=== PATIENT | male | born 1945 | race Caucasian/White ===

== ENCOUNTER 2017-05-25 04:00 | Emergency (ER) | payer OTHER ==
[~2017-05-25] VITALS: Ht 177.8 cm; Wt 100.0 kg
[2017-05-25 05:49] LABS: HEMATOCRIT 37.2 % (39.2-51.8); HEMOGLOBIN 12.4 g/dL (13.7-18.0); WHITE BLOOD COUNT 7.2 x10^3/uL (3.4-10)
[2017-05-25 06:01] LABS: BLOOD UREA NITROGEN 17 mg/dL (7-18)
[2017-05-25 06:58] VITALS: BP 132/71
== END 2017-05-25 07:17 | disposition home or self-care (01) ==
LOC: ED 04:52
DX: M71.21 Synovial cyst of popliteal space [Baker], right knee (principal); Z59.0 Homelessness
CPT/HCPCS: 36415; 71010; 80048; 82040; 83880; 85025; 93970; 99285

== ENCOUNTER 2017-09-28 15:04 | Emergency (ER) | payer OTHER ==
[~2017-09-28] VITALS: Ht 177.8 cm; Wt 86.4 kg
[2017-09-28 16:56] LABS: ALBUMIN 3.9 g/dL (3.4-5.0); ANION GAP 7 mmol/L (5-15); CALCIUM 9.1 mg/dL (8.5-10.1); CHLORIDE 108 mmol/L (98-107)
[2017-09-28 16:59] LABS: SALICYLATE LEVEL < 1.7 mg/dL (2.8-20.0)
[2017-09-28 17:00] LABS: CREATININE 1.32 mg/dL (0.7-1.3)
[2017-09-28 17:03] LABS: ACETAMINOPHEN < 2 mcg/mL (10-30)
[2017-09-28 17:22] LABS: BASOPHILS % (AUTO) 0 % (0-1); EOSINOPHILS # (AUTO) 0.14 x10^3/uL (0-0.4); EOSINOPHILS % (AUTO) 2 % (1-7); LYMPHOCYTES # (AUTO) 1.28 x10^3/uL (1-3.4); LYMPHOCYTES % (AUTO) 17 % (22-44); MD MORPH REVIEW ONLY; MONOCYTES # (AUTO) 0.63 x10^3/uL (0.2-0.8); MONOCYTES % (AUTO) 8 % (2-9); NEUTROPHILS # (AUTO) 5.45 x10^3/uL (1.8-6.8); NEUTROPHILS % (AUTO) 73 % (42-75); PLATELET COUNT 74 x10^3/uL (130-400)
[2017-09-28 17:23] LABS: MEAN CORPUSCULAR HEMOGLOBIN 30.4 pg (27.5-34.5); MEAN CORPUSCULAR HGB CONC 34.2 g/dL (33.2-36.2); MEAN CORPUSCULAR VOLUME 89.1 fL (81-97); RED BLOOD COUNT 4.91 x10^6/uL (4.38-5.82); RED CELL DISTRIBUTION WIDTH 15.1 % (9.4-14.8)
[2017-09-28 17:24] LABS: <PLATELET ESTIMATE> DECREASED; <PLT MORPHOLOGY> NORMAL PLT MORPH; <RBC MORPHOLOGY> NORMAL
[2017-09-28 17:25] LABS: HEMOGRAM NOTE RECHECKED
[2017-09-28 19:43] LABS: AMPHETAMINE SCREEN, URINE Negative (Negative); BARBITURATE SCREEN, URINE Negative (Negative); BENZODIAZEPINE SCREEN, URINE Negative (Negative); CANNABINOID SCREEN, URINE Negative (Negative); COCAINE SCREEN, URINE Negative (Negative); METHADONE SCREEN, URINE Negative (Negative); OPIATE SCREEN, URINE Negative (Negative)
[2017-09-28] MEDS ORDERED: ONDANSETRON ODT 4 MG PO PRN (23:30)
[2017-09-28] MEDS ORDERED: POLYETHYLENE GLYCOL 17 GM PACKET PO PRN (23:30)
[2017-09-28] MEDS ORDERED: BISACODYL 10 MG SUPP PR PRN (23:30)
[2017-09-28] MEDS ORDERED: ACETAMINOPHEN 325 MG TABLET PO PRN (23:30)
[2017-09-29] MEDS ORDERED: SENNA/DOCUSATE TABLET ONE (12:52)
[2017-09-29] MEDS: SENNA/DOCUSATE TABLET PO SCH (12:53)
[2017-09-30 04:39] LABS: ANION GAP 9 mmol/L (5-15); CALCIUM 9.1 mg/dL (8.5-10.1); CHLORIDE 109 mmol/L (98-107); CREATININE 1.27 mg/dL (0.7-1.3)
[2017-09-30] MEDS ORDERED: SENNA/DOCUSATE TABLET ONE (09:12)
[2017-09-30] MEDS: SENNA/DOCUSATE TABLET PO SCH (09:28)
[2017-10-01] MEDS: SENNA/DOCUSATE TABLET PO SCH (08:49)
[2017-10-01] MEDS ORDERED: SENNA/DOCUSATE TABLET ONE ×2 (08:49)
[2017-10-02 13:04] VITALS: BP 117/71
== END 2017-10-02 14:43 ==
LOC: ED 18:05 → UNDOADMOB 23:24 → EDIP 23:24 → ED 10-02 14:43
DX: R45.851 Suicidal ideations (principal); F32.9 Major depressive disorder, single episode, unspecified; Z79.899 Other long term (current) drug therapy
CPT/HCPCS: 36415; 80048; 80307; 80329; 82040; 85025; 99285; G0480

== ENCOUNTER 2018-01-23 21:54 | Emergency (ER) | payer OTHER ==
[~2018-01-23] VITALS: Ht 180.3 cm; Wt 70.3 kg
[2018-01-23 21:58] VITALS: BP 142/73
[2018-01-23] MEDS ORDERED: IBUPROFEN 200 MG TABLET PO ONE (22:30)
[2018-01-23] MEDS ORDERED: IBUPROFEN 200 MG TABLET ONE (22:35)
== END 2018-01-23 23:37 | disposition home or self-care (01) ==
LOC: ED 23:31
DX: G89.29 Other chronic pain (principal); M25.562 Pain in left knee; M25.561 Pain in right knee
CPT/HCPCS: 99283